=== PATIENT | female | born 1950 | race Caucasian/White ===

== ENCOUNTER → 2024-02-20 | Outpatient (CLI) | payer OTHER, SELFPAY ==
--- NOTE | 2024-02-20 17:22 | DI.NM.S_ITS ---
DATE OF SERVICE: 02/20/2024 PROCEDURE: Exercise stress test. INDICATIONS: Exertional shortness of breath. CARDIAC STRESS: The patient walked on Gavin protocol for 3 minutes and 11 seconds, achieved maximum heart rate of 146, which was 99% of target heart rate. Resting blood pressure 146/78 and peak blood pressure 202/92 mmHg. Baseline rhythm is sinus with sinus tachycardia, rate about 105 beats per minute with some repolarization changes. During stress, no convincing ischemic changes. No significant arrhythmias. The patient has shortness of breath during exertion. No chest discomfort. 4.6 METs of workload. RIGOBERTO positive 40%. Delayed recovery. CONCLUSION: Exercise stress test is negative for inducible ischemia; however, patient has significantly diminished exercise tolerance. Walked on Gavin protocol only for 3 minutes and 11 seconds with significant shortness of breath. RIGOBERTO positive 40%. Mildly hypertensive blood pressure response. No significant arrhythmias. No chest pain. Late recovery. Correlate clinically. Betty Diana - WON/todd/POLI doc#: [id number]/job#: [id number] dd: 02/20/2024 16:46:00 dt: 02/20/2024 17:14:00 DICTATING /COPIES TO: Gómez Miller MD COPIES MNE: AMBER;
== END ==
LOC: DI 15:23
PROVIDERS: Referring Provider Internal Medicine; Visit Provider Internal Medicine
DX: R06.09 Other forms of dyspnea (principal); E11.9 Type 2 diabetes mellitus without complications; I10 Essential (primary) hypertension
CPT/HCPCS: 93017

== ENCOUNTER → 2024-07-16 09:57 | Outpatient (CLI) | payer OTHER, SELFPAY ==
--- NOTE | 2024-07-16 09:58 | DI.CT.S_ITS ---
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 1 mm lung window, 5 mm thick coronal and sagittal and 7 mm axial MIP reformats were then acquired. For radiation dose reduction, the following was used: automated exposure control, adjustment of mA and/or kV according to patient size. COMPARISON: None. FINDINGS: Image quality: This examination is limited by involuntary motion artifact. Lower Neck: No enlarged lymph nodes. Thyroid: No thyroid nodules which require sonographic follow up, per consensus guidelines. Axillae: No enlarged lymph nodes. Chest Wall: Unremarkable. Bones: Age-appropriate bony degenerative changes are seen. Lungs and Pleura: No pneumothorax or pleural effusions. There is streaky opacity seen within the dependent left lower lobe, with the appearance of scarring, although atelectasis is possible. Minimal atelectasis can be seen within the lingula. No consolidation or suspicious nodules. Heart: Heart size is normal. No pericardial effusion. Fdlt-[id number]-pwnctdre coronary artery calcification can be seen. Thoracic Vessels: The aorta and pulmonary arteries demonstrate normal size. Mediastinum and Nancy: No enlarged lymph nodes. Esophagus: No wall thickening. No hiatal hernia. Upper Abdomen: Visualized upper abdomen solid organs and bowel loops appear normal. IMPRESSION: No significant pulmonary abnormality seen, with left lower lung scarring versus atelectasis. Additional findings: [id number]-tr-conzbsyg coronary artery calcification Dictated by: Nabil Bhatti M.D. on 07/16/2024 at 16:10 Approved by: Nabil Bhatti M.D. on 07/16/2024 at 16:12
== END ==
PROVIDERS: PCP Physician Assistant; Referring Provider Student in an Organized Health Care Education/Training Program; Visit Provider Student in an Organized Health Care Education/Training Program
DX: J98.4 Other disorders of lung (principal); R06.00 Dyspnea, unspecified; I25.10 Atherosclerotic heart disease of native coronary artery without angina pectoris
CPT/HCPCS: 71250